=== PATIENT | male | born 1965 | race Caucasian/White ===

== ENCOUNTER 2017-04-15 06:07 | Day surgery (SDC) | payer OTHER ==
[~2017-04-15] VITALS: Ht 182.9 cm; Wt 112.0 kg
[2017-04-15] MEDS ORDERED: WARF6TAB35 PO (07:31)
[2017-04-15] MEDS ORDERED: LISI20TA11 PO (07:32)
[2017-04-15] MEDS ORDERED: HYD25 PO (07:32)
[2017-04-15 07:59] VITALS: Ht 182.9 cm; Wt 112.0 kg
[2017-04-15 08:02] VITALS: BP 114/70; PULSE 70; RESP 20
[2017-04-15 08:04] LABS: BASOPHILS % 0.5 % (0.0-2.0); EOSINOPHILS # 0.2 10^3/ul (0.0-0.5); HEMATOCRIT 42.7 % (42.0-52.0); HEMOGLOBIN 14.6 g/dl (14.0-18.0); LYMPHOCYTES # 2.8 10^3/ul (0.8-2.9); LYMPHOCYTES % 37.4 % (15.0-51.0); MEAN CORPUSCULAR HEMOGLOBIN 30.4 pg (29.0-33.0); MEAN CORPUSCULAR HGB CONC 34.2 g/dl (32.0-37.0); MEAN CORPUSCULAR VOLUME 88.8 fl (82.0-101.0); MEAN PLATELET VOLUME 10.1 fl (7.4-10.4); MONOCYTE # 0.5 10^3/ul (0.3-0.9); MONOCYTES % 6.8 % (0.0-11.0); NEUTROPHILS % 52.8 % (39.0-77.0); PLATELET COUNT 199 10^3/UL (140-415); RED BLOOD COUNT 4.81 10^6/ul (4.70-6.10); RED CELL DISTRIBUTION WIDTH 12.2 % (11.5-14.5); WHITE BLOOD COUNT 7.5 10^3/ul (4.8-10.8)
[2017-04-15 08:46] LABS: CALCIUM 8.9 mg/dl (8.4-10.2); CREATININE 0.92 mg/dl (0.61-1.24); POTASSIUM 3.9 mmol/L (3.5-5.1)
[2017-04-15 09:01] LABS: INR 2.57; PROTIME 27.9 Sec (12.2-14.2); PT RATIO 2.2
[2017-04-15 09:14] LABS: PARTIAL THROMBOPLASTIN TIME 60.4 Sec (25.0-35.0)
--- NOTE | 2017-04-15 11:23 | RADRPT ---
PROCEDURE: XR Chest. CLINICAL INDICATION: Preoperative. Chest pain. TECHNIQUE: Single frontal view. COMPARISON: None. FINDINGS: The lungs are clear. The heart size is normal. There are sternal wires and a mitral valve replacement. There is no pleural effusion. There is no pneumothorax. IMPRESSION: 1. Previous mitral valve replacement. 2. Clear lungs. RPTAT: QQ .Naveen Thayer MD, MD Date Time Electronically viewed and signed by .Naveen Thayer MD, MD on 04/15/2017 11:22 .R/
--- NOTE | 2017-04-16 11:15 | RADRPT ---
Vent Rate: 66 bpm RR Interval: 0 msec VA Interval: 170 msec QRS Duration: 96 msec QT Interval: 424 msec QTC Interval: 444 msec P-R-T [place]: 53 - 50 - 51 degrees Normal sinus rhythm Normal ECG Electronically Signed By: Luis Candelario [id number]
== END 2017-04-15 09:54 | disposition home or self-care (01) ==
LOC: SDS 06:07
PROVIDERS: ATTEND Internal Medicine
DX: R07.9 Chest pain, unspecified (principal); Z53.9 Procedure and treatment not carried out, unspecified reason; E78.00 Pure hypercholesterolemia, unspecified
CPT/HCPCS: 71010; 80048; 80061; 85025; 85610; 85730; 93005

== ENCOUNTER 2017-04-21 06:31 | Day surgery (SDC) | payer OTHER ==
[2017-04-21] VITALS (18 sets, daily range): BP systolic 93–115; BP diastolic 62–71; PULSE 60–74; RESP 10–23; Ht 182.9 cm; Wt 111.0 kg
[~2017-04-21] VITALS: Ht 182.9 cm; Wt 111.0 kg
[~2017-04-21 06:31] MED LIST: HYD25 PO; LISI20TA11 PO; WARF6TAB35 PO
[2017-04-21] MEDS ORDERED: FAMOTIDINE 20 MG TAB PO PRN (07:00)
[2017-04-21] MEDS ORDERED: DIPHENHYDRAMINE 50 MG CAP PO PRN (07:00)
[2017-04-21] MEDS ORDERED: DIAZEPAM 5 MG TAB PO PRN (07:00)
[2017-04-21] MEDS ORDERED: SOD CHLORIDE 0.45% 1,000 ML IV SCH (07:00)
[2017-04-21 08:40] LABS: BASOPHILS % 0.5 % (0.0-2.0); EOSINOPHILS # 0.1 10^3/ul (0.0-0.5); EOSINOPHILS % 1.6 % (0.0-7.0); HEMATOCRIT 41.6 % (42.0-52.0); HEMOGLOBIN 14.3 g/dl (14.0-18.0); LYMPHOCYTES # 2.6 10^3/ul (0.8-2.9); LYMPHOCYTES % 32.3 % (15.0-51.0); MEAN CORPUSCULAR HEMOGLOBIN 30.6 pg (29.0-33.0); MEAN CORPUSCULAR HGB CONC 34.4 g/dl (32.0-37.0); MEAN CORPUSCULAR VOLUME 88.9 fl (82.0-101.0); MEAN PLATELET VOLUME 10.6 fl (7.4-10.4); MONOCYTE # 0.6 10^3/ul (0.3-0.9); NEUTROPHILS % 57.8 % (39.0-77.0); PLATELET COUNT 225 10^3/UL (140-415); RED BLOOD COUNT 4.68 10^6/ul (4.70-6.10); RED CELL DISTRIBUTION WIDTH 12.4 % (11.5-14.5)
[2017-04-21 08:58] LABS: INR 1.12; PROTIME 14.4 Sec (12.2-14.2); PT RATIO 1.1
[2017-04-21 08:59] LABS: PARTIAL THROMBOPLASTIN TIME 32.6 Sec (25.0-35.0)
[2017-04-21 09:02] LABS: CHOL/HDL RATIO 7.2 RATIO
[2017-04-21 09:08] LABS: CALCIUM 9.3 mg/dl (8.4-10.2); CREATININE 1.15 mg/dl (0.61-1.24); POTASSIUM 3.8 mmol/L (3.5-5.1)
[2017-04-21] MEDS ORDERED: LIDOCAINE 1% (MDV) 20 ML INJ ONE (09:43)
[2017-04-21] MEDS ORDERED: HEPARIN 1000 UNITS/ML 10 ML INJ ONE (09:43)
[2017-04-21] MEDS ORDERED: IODIXANOL LOCM 100 ML BTL ONE (09:43)
[2017-04-21] MEDS ORDERED: NITROGLYCERIN (IC) 100 MCG/ML INJ ONE (09:44)
[2017-04-21] MEDS ORDERED: SOD CHLORIDE 0.9% 500 ML ONE (09:44)
[2017-04-21] MEDS ORDERED: FENTAnyl 50 MCG/ML VIAL ONE (09:44)
[2017-04-21] MEDS ORDERED: MIDAZOLAM 1 MG/ML 2 ML INJ ONE (09:44)
[2017-04-21] MEDS ORDERED: VERAPAMIL 5 MG INJ ONE (09:44)
[2017-04-21] MEDS ORDERED: AL HYDROX/MG HYDROX/SIMETH 30 ML CUP PO PRN (11:00)
[2017-04-21] MEDS ORDERED: morphine 2 MG INJ IV PRN (11:00)
[2017-04-21] MEDS ORDERED: SOD CHLORIDE 0.9% 1,000 ML IV SCH (11:00)
[2017-04-21] MEDS ORDERED: ACETAMINOPHEN 325 MG TAB PO PRN (11:00)
[2017-04-21] MEDS ORDERED: ONDANSETRON 4 MG INJ IV PRN (11:00)
--- NOTE | 2017-04-21 13:11 | CARRPT ---
DATE OF PROCEDURE: 04/21/2017 TYPE OF PROCEDURE: 1. Left heart catheterization. 2. Coronary angiography. 3. Left ventriculogram. 4. 30 minutes of moderate conscious sedation. ATTENDING PHYSICIAN: Dr. Cheikh Mary. REFERRING PHYSICIAN: Self-referred. INDICATION: Dyspnea on exertion, chest pain with positive stress test for anterior ischemia, high-risk markers for cardiovascular events. ANESTHESIA: Conscious and local. BRIEF HISTORY: Mr. Arboleda is a 51-year-old male with history of hypertension, dyslipidemia, prior mitral valve replacement, who initially presented with complaints of worsening dyspnea on exertion. Underwent a cardiac stress test revealing positive ischemia. Given these findings, patient referred for and presented today in order to undergo left heart catheterization to assess for the possibility of significant evidence of coronary artery disease, symptoms of chest pain, and subsequent positive stress test findings. PROCEDURE: After informed consent was obtained, patient was brought to the [facility] where his right radial area was prepped and draped in usual fashion. 2 percent lidocaine was infiltrated in the right radial area in order to achieve adequate local anesthesia. Using the modified Seldinger technique, the radial was cannulated and a 6- Angolan arterial sheath was placed. A 6-Angolan JL3.5 catheter was used to cath the left main coronary ostium. With contrast injection, multiple views of the left main coronary system were obtained. JL3.5 removed over a guidewire and a JR4 was used to cannulate the right coronary artery ostium. Initially cannulated the conus branch and able to pullback and visualize the right coronary artery. Afterward with contrast injection, multiple views of this vessel were obtained. Patient was given 200 mcg of IC nitroglycerin in order to assess the possibility of a spasm, which he was having in the midportion of the right coronary artery, which he was. Which after IC nitroglycerin had almost complete resolution of spasm. Subsequently at this time, the JR4 was removed and a 6-Angolan pigtail was passed down the ascending aorta into the left ventricle. Left ventricular end-diastolic pressure was measured. Left ventriculogram was undertaken and pullback across aortic valve to assess for significant gradient, which there was not, removed. Subsequently, at this time the patient's sheath was removed. TR band was applied. There were no known complications. FINDINGS: 1. Coronary angiography: Left main, 5.5 mm, no stenosis. Circumflex proximally is a 3.5 mm vessel and has 20 percent midbody stenosis. The remainder of the circumflex is free of significant focal stenosis. There is a mid branching obtuse marginal 3 mm vessel with no significant focal stenosis. The patient's circumflex is at least a codominant vessel, and therefore, gives off a small PDA, 2 mm, with a 20 percent stenosis in its mid distal portion. There are proximal and mid branching diagonals, each approximately 2 mm with no significant focal stenosis. The right coronary artery proximally is a 3 mm vessel and has a 20 percent stenosis shortly after its takeoff. The remainder of the right coronary artery is free of significant focal stenosis. Codominant vessel, gives off 2 mm PDA which courses along the territory with no sign focal stenoses and subcentimeter posterolateral branch with no sign focal stenosis. 2. Left ventriculogram revealed left ventricular ejection fraction approximately 60 percent to 65 percent. No significant aortic stenosis by gradient. 1+ mitral regurgitation. TOTAL FLUOROSCOPY TIME: 10.8 minutes. TOTAL CONTRAST: 150 cc. IMPRESSION: 1. Mild nonobstructive coronary artery disease. 2. Preserved left ventricular systolic function. 3. Elevated left heart filling pressures with left ventricular end-diastolic pressure of 23-24, likely consistent with diastolic dysfunction. Additionally we noted that on imaging the patient's mitral valve leaflets appear to have complete valvular opening. RECOMMENDATIONS: 1. Maximize medical management. 2. Aggressive risk factor reduction. 2.1. Patient will be readmitted to the same day surgery center for post image and probable discharge later this afternoon. Dictated By: Rajesh Nation /[email or web address] /Document#: [id number]
--- NOTE | 2017-04-21 18:25 | OPR ---
Date/Time of Note Date/Time of Note DATE: 04/21/17 TIME: 11:30 Operative Report Preoperative Diagnosis 1.abnormal stress test 2.Dyspnea on exertion Postoperative Diagnosis 1.Non-obstructive cad Operation/Procedure Performed 1.Left Heart Catheterization 2. LV gram Surgeon: MUKUND BREWSTER Anesthesia Type: moderate sedation Estimated Blood Loss: 0 - 10 ml's Transfusion Required: no Specimen: none Specimens NA Grafts/Implants: none Grafts/Implants NA Complications: no MUKUND BREWSTER Apr 21, 2017 18:24
== END 2017-04-21 14:37 | disposition home or self-care (01) ==
LOC: SDS 06:31
PROVIDERS: ATTEND Internal Medicine
DX: I25.10 Atherosclerotic heart disease of native coronary artery without angina pectoris (principal)
CPT/HCPCS: 80048; 80061; 85025; 85610; 85730; 93458; C1769; C1887; J1644; J2250; J3010; J7040; Q9967; Z7610